=== PATIENT | female | born 1960 ===

== ENCOUNTER 2019-04-05 12:41 | Outpatient (CLI) | payer OTHER | END 2019-04-05 12:44 | disposition home or self-care (01) | LOC: RAD 12:41 | DX: M54.5 Low back pain (principal); R10.84 Generalized abdominal pain ==

== ENCOUNTER 2019-04-05 13:47 | Outpatient (CLI) | payer OTHER | END 2019-04-05 13:56 | disposition home or self-care (01) | LOC: LAB 13:47 | DX: D64.89 Other specified anemias (principal); N39.0 Urinary tract infection, site not specified; E88.89 Other specified metabolic disorders ==

== ENCOUNTER 2020-07-12 11:39 | Outpatient (CLI) | payer OTHER | END 2020-07-12 11:46 | disposition home or self-care (01) | LOC: RAD 11:39 | PROVIDERS: ATTEND Orthopaedic Surgery | DX: M25.562 Pain in left knee (principal) ==